=== PATIENT | female | born 1975 | race African-American/Black ===

== ENCOUNTER 2018-09-28 05:41 | Day surgery (SDC) | payer OTHER ==
[~2018-09-28] VITALS: Ht 160 cm; Wt 109.8 kg
[~2018-09-28 05:41] MED LIST: IBUPROFEN 600600 M1 PO; NORVASC5 MG PO
[2018-09-28 09:07] VITALS: BP 163/91
[2018-09-28] MEDS ORDERED: HYDROCODONE-AP1 EAC6 PO (12:30)
[2018-09-28 12:41] VITALS: BP 163/91
--- NOTE | 2018-09-28 15:20 | EKG ---
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1975 Requested By: Sukumar Thomas Order Number: [id number] MD: Maxime Joy Measurements Intervals [place] Rate: 76 P: 29 [place]: 166 QRS: 3 QRSD: 97 T: 2 QT: 401 QTc: 451 Interpretive Statements Sinus rhythm Poor R wave progression No previous ECG available for comparison Electronically Signed On 09-28-2018 15:19:48 CDT by Maxime Joy [email or web address] ��������������������������������������������� <ELECTRONICALLY SIGNED> ���������������������������������������� By: Maxime Joy MD, [facility] ��������������������������������������������� 09/28/18 1519 0830 9 Maxime Joy MD, FACC /EPI
--- NOTE | 2018-09-28 15:29 | O ---
[facility] [place] [address] OPERATIVE REPORT Name: RUBA WHITE Room #: 150-10 [facility].#: [id number] Admission: 09/28/18 ������������������ Attend Phys: Sukumar Thomas MD Discharge: ������������������ Date of : 73 Report #: [id number] THIS REPORT FOR: //name// CC: Prerna Hawkins DO Fransisca Thomas DATE OF SERVICE: 09/28/[address] Sukumar Thomas and Fransisca Lane, nurse practitioner and patient of Dr. Prerna Hawkins. PREOPERATIVE DIAGNOSIS: Incarcerated ventral epigastric hernia. POSTOPERATIVE DIAGNOSIS: Incarcerated ventral epigastric hernia. PROCEDURE: Repair of an incarcerated ventral epigastric hernia. SURGEON: Sukumar Thomas MD. ANESTHESIA: General. DESCRIPTION OF PROCEDURE: The patient was brought to the operating room and placed on the operative table in the supine position. Sequential compression devices were in place for DVT prophylaxis. There was no indication for preoperative antibiotics. The patient underwent a general endotracheal anesthesia and the abdomen was then prepped and draped in a sterile fashion. Skin and subcutaneous tissue around the upper midline abdomen was infiltrated with 0.5% Marcaine. A vertical upper midline abdominal incision was performed over the hernia sac using #10 scalpel blade. Hemostasis obtained using electrocautery. Dissection was carried down through subcutaneous tissue, this large hernia sac, which was dissected free down to the fascia. Hernia sac was then opened and the incarcerated omentum and transverse colon was reduced back into the abdomen. Hernia sac was then excised using clamps and 2-0 chromic ties and sent as specimen to pathology. After removing the hernia sac, the fascial edges came together very easily with interrupted [id number] #1 Prolene sutures. The deep and superficial subcutaneous tissue was then reapproximated using simple interrupted 2-0 chromic sutures and the skin then closed with a running 4-0 subcuticular Vicryl stitch. The wound was then dressed with Mastisol, 1/2-inch Steri-Strips cut in half, Telfa, 4 x 4, gauze, sponge and tape. The patient was then awakened from the general anesthesia and taken to recovery room in good condition. Estimated blood loss was approximately [address] [address] OPERATIVE REPORT Name: RUBA WHITE Room #: 150-10 [facility]..#: [id number] Admission: 09/28/18 ������������������ Attend Phys: Sukumar Thomas MD Discharge: ������������������ Date of : 73 Report #: [id number] and the patient tolerated procedure well. All sponge, lap and instrument counts correct x 2. ��������������������������������������������� <ELECTRONICALLY SIGNED> ���������������������������������������� By: Sukumar Thomas MD ��������������������������������������������� 09/28/18 1529 1227 1242 Sukumar Thomas MD /nt
--- NOTE | 2018-10-03 12:06 | PATH ---
[facility] [address] [place] [address] PATHOLOGY RPT PROCEDURE Name: TONIO WHITE Room #: DEP [facility]..#: [id number] ������������������ Admission: 09/28/18 ������������������ Date of : 73 Discharge: 09/28/18 Report #: [id number] Path Case #: [id number] [facility] Accession Number: [id number] . 01 Material submitted: . hernia - VENTRAL HERNIA SAC . 01 Clinical history: . Ventral epigastric hernia . 02 Diagnosis: Ventral hernia sac, repair: - Congested fibrovascular connective tissue, compatible with a hernia sac. (IUV/db; 09/30/2018) LBQ/09/30/2018 . 02 Electronically signed: . Kanwal Capps MD, Pathologist NPI- [id number] . 01 Gross description: . The specimen is received in formalin, labeled "Tonio White, ventral hernia sac", is a disrupted, fibromembranous, fibroadipose sac measuring 10.3 x 0.4 x 2.2 cm. No discrete nodules or masses identified. 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 (SWS; 09/28/2018) SHS/SHS . 02 Pathologist provided ICD-10: K43.9 . 02 CPT . 872359 Specimen Comment: A courtesy copy of this report has been sent to Specimen Comment: [phone], . Specimen Comment: Report sent to / DR CORNEJO Performed at: [address], [place] [id number] MD Shiva Fiore MD Phone: [phone] Performed at: [address] [id number] MD Kanwal Capps MD Phone: [phone]
== END 2018-09-28 15:20 | disposition home or self-care (01) ==
LOC: OR 05:41 → TBA 05:41 → OR 10:50
DX: K43.6 Other and unspecified ventral hernia with obstruction, without gangrene (principal); I10 Essential (primary) hypertension; Z98.890 Other specified postprocedural states; Z79.899 Other long term (current) drug therapy; Z79.891 Long term (current) use of opiate analgesic
CPT/HCPCS: 50010; 50101; 50386; 50417; 56524; 56525; 56526; 56528; 62110; 62900; 70005